=== PATIENT | female | born 1940 | race African-American/Black ===

== ENCOUNTER 2016-08-06 16:02 | Inpatient (IN) | payer OTHER ==
[~2016-08-06] VITALS: Ht 165.1 cm; Wt 138.2 kg
[2016-08-06] MEDS ORDERED: ACETAMINOPHEN 325 MG TAB ONE (17:24)
[2016-08-06] MEDS ORDERED: SODIUM CHLORIDE 0.9% 1,000 ML ONE (18:16)
[2016-08-06] MEDS ORDERED: AZITHROMYCIN 500 MG VIAL IV ONE (18:46)
[2016-08-06] MEDS ORDERED: CEFTRIAXONE 1 GM VIAL ONE (18:46)
[2016-08-06] MEDS ORDERED: SODIUM CHLORIDE 0.9% 100 ML IV ONE (18:47)
[2016-08-06] MEDS ORDERED: SODIUM CHLORIDE 0.9% 250 ML IV ONE (18:47)
[2016-08-06] MEDS ORDERED: DEXTROSE 50% SYRINGE 50 ML IV PRN (20:00)
[2016-08-06] MEDS ORDERED: GLUCAGON 1 MG VIAL IM PRN (20:00)
[2016-08-06 21:02] VITALS: RESP 20; TEMP 99.6
[2016-08-06 21:16] VITALS: BP_SYST 140
[2016-08-06 21:17] VITALS: BMI 50.7
[2016-08-06 22:18] VITALS: RESP 20
[2016-08-06 23:55] VITALS: TEMP 100.3
[2016-08-07] VITALS (8 sets, daily range): BP systolic 111–144; RESP 18–20; TEMP 98–99.6; Ht 165.1 cm; Wt 138.2 kg
[2016-08-07] MEDS: ENOXAPARIN 40 MG/0.4 ML SYR SUBQ SCH ×2 (00:01→08:34)
[2016-08-07] MEDS: SODIUM CHLORIDE 0.9% 1,000 ML IV SCH ×3 (00:01→17:23)
[2016-08-07] MEDS: ACETAMINOPHEN 325 MG TAB PO PRN ×2 (00:17→08:35)
[2016-08-07] MEDS ORDERED: MISSING DOSE XX ONE (08:25)
[2016-08-07] MEDS: CEFTRIAXONE 1 GM in SODIUM CHLORIDE 0.9% 50 ML IV SCH (08:33)
[2016-08-07] MEDS: AZITHROMYCIN 250 MG TAB PO SCH (09:29)
[2016-08-08] VITALS (11 sets, daily range): BP systolic 121–188; RESP 16–24; TEMP 98.1–98.4
[2016-08-08] MEDS: SODIUM CHLORIDE 0.9% 1,000 ML IV SCH (07:11)
[2016-08-08] MEDS: AZITHROMYCIN 250 MG TAB PO SCH (08:18)
[2016-08-08] MEDS: ENOXAPARIN 40 MG/0.4 ML SYR SUBQ SCH (08:19)
[2016-08-08] MEDS: CEFTRIAXONE 1 GM in SODIUM CHLORIDE 0.9% 50 ML IV SCH (08:19)
[2016-08-08] MEDS: ACETAMINOPHEN 325 MG TAB PO PRN (08:19)
[2016-08-08] MEDS: TRIAMCIN 0.1% CR 454 GM TOPICAL SCH (08:23)
[2016-08-08] MEDS: LEVEMIR INSULIN SUBQ SCH ×2 (14:57→20:58)
[2016-08-08] MEDS: LEVOTHYROXINE 0.025 MG TAB PO SCH (14:57)
[2016-08-08] MEDS ORDERED: MISSING DOSE XX ONE (15:50)
[2016-08-08] MEDS: Furosemide 20 MG TAB PO SCH (16:14)
[2016-08-08] MEDS: humuLIN REG INSULIN SUBQ SCH (16:44)
[2016-08-09] VITALS (9 sets, daily range): BP systolic 133–185; RESP 20–24; TEMP 97.4–98.6
[2016-08-09] MEDS: ACETAMINOPHEN 325 MG TAB PO PRN (00:18)
[2016-08-09] MEDS: SODIUM CHLORIDE 0.9% 1,000 ML IV SCH ×2 (05:08→18:47)
[2016-08-09] MEDS ORDERED: MISSING DOSE XX ONE ×2 (06:05→20:10)
[2016-08-09] MEDS: LEVOTHYROXINE 0.025 MG TAB PO SCH (06:31)
[2016-08-09] MEDS: humuLIN REG INSULIN SUBQ SCH ×3 (08:19→16:58)
[2016-08-09] MEDS: LEVEMIR INSULIN SUBQ SCH ×2 (08:29→20:21)
[2016-08-09] MEDS: CEFTRIAXONE 1 GM in SODIUM CHLORIDE 0.9% 50 ML IV SCH (08:30)
[2016-08-09] MEDS: ENOXAPARIN 40 MG/0.4 ML SYR SUBQ SCH (08:34)
[2016-08-09] MEDS: Atorvastatin 40 MG TAB PO SCH ×2 (08:34→20:20)
[2016-08-09] MEDS: Furosemide 20 MG TAB PO SCH (08:34)
[2016-08-09] MEDS: AZITHROMYCIN 250 MG TAB PO SCH (08:34)
[2016-08-09] MEDS: TRIAMCIN 0.1% CR 454 GM TOPICAL SCH (13:40)
[2016-08-10] VITALS (11 sets, daily range): BP systolic 128–183; RESP 16–20; TEMP 97.4–98.2
[2016-08-10] MEDS: LEVOTHYROXINE 0.025 MG TAB PO SCH (06:19)
[2016-08-10] MEDS: SODIUM CHLORIDE 0.9% 1,000 ML IV SCH (06:30)
[2016-08-10] MEDS: LEVEMIR INSULIN SUBQ SCH ×2 (08:25→23:00)
[2016-08-10] MEDS: humuLIN REG INSULIN SUBQ SCH ×3 (08:26→17:05)
[2016-08-10] MEDS: AZITHROMYCIN 250 MG TAB PO SCH (08:47)
[2016-08-10] MEDS: CEFTRIAXONE 1 GM in SODIUM CHLORIDE 0.9% 50 ML IV SCH (08:48)
[2016-08-10] MEDS: ENOXAPARIN 40 MG/0.4 ML SYR SUBQ SCH (08:48)
[2016-08-10] MEDS: Furosemide 20 MG TAB PO SCH (08:48)
[2016-08-10] MEDS: TRIAMCIN 0.1% CR 454 GM TOPICAL SCH (10:15)
[2016-08-10] MEDS: Atorvastatin 40 MG TAB PO SCH (22:00)
[2016-08-10] MEDS ORDERED: LEVEMIR INSULIN SUBQ SCH (22:42)
[2016-08-11] VITALS (9 sets, daily range): BP systolic 116–156; RESP 17–20; TEMP 97.5–98.5
[2016-08-11] MEDS: LEVOTHYROXINE 0.025 MG TAB PO SCH (06:31)
[2016-08-11] MEDS: Furosemide 20 MG TAB PO SCH (08:18)
[2016-08-11] MEDS: CEFTRIAXONE 1 GM in SODIUM CHLORIDE 0.9% 50 ML IV SCH (08:19)
[2016-08-11] MEDS: LEVEMIR INSULIN SUBQ SCH ×2 (08:20→16:52)
[2016-08-11] MEDS: humuLIN REG INSULIN SUBQ SCH ×3 (08:20→16:52)
[2016-08-11] MEDS: ENOXAPARIN 40 MG/0.4 ML SYR SUBQ SCH (08:21)
[2016-08-11] MEDS: TRIAMCIN 0.1% CR 454 GM TOPICAL SCH (08:26)
[2016-08-11] MEDS: Atorvastatin 40 MG TAB PO SCH (21:49)
[2016-08-12 03:18] VITALS: BP_SYST 123; RESP 20; TEMP 98.3
[2016-08-12] MEDS: LEVOTHYROXINE 0.025 MG TAB PO SCH (06:15)
[2016-08-12 07:53] VITALS: BP_SYST 140; RESP 20; TEMP 98.3
[2016-08-12] MEDS ORDERED: LEVEMIR INSULIN SUBQ SCH ×2 (08:00→17:00)
[2016-08-12] MEDS: CEFTRIAXONE 1 GM in SODIUM CHLORIDE 0.9% 50 ML IV SCH (08:32)
[2016-08-12] MEDS: Furosemide 20 MG TAB PO SCH (08:33)
[2016-08-12] MEDS: ENOXAPARIN 40 MG/0.4 ML SYR SUBQ SCH (08:34)
[2016-08-12] MEDS: humuLIN REG INSULIN SUBQ SCH ×3 (08:35→17:10)
[2016-08-12] MEDS: TRIAMCIN 0.1% CR 454 GM TOPICAL SCH (08:36)
[2016-08-12 13:00] VITALS: BP_SYST 138; RESP 20; TEMP 98.4
[2016-08-12 17:14] VITALS: BP_SYST 116; RESP 20; TEMP 98.6
[2016-08-12 19:15] VITALS: BP_SYST 150; RESP 20; TEMP 98.4
[2016-08-12] MEDS: Atorvastatin 40 MG TAB PO SCH (21:46)
[2016-08-12 23:52] VITALS: BP_SYST 137; RESP 20; TEMP 98.3
[2016-08-13] VITALS (8 sets, daily range): BP systolic 118–156; RESP 18–20; TEMP 97.1–98.4
[2016-08-13] MEDS: LEVOTHYROXINE 0.025 MG TAB PO SCH (06:41)
[2016-08-13] MEDS: LEVEMIR INSULIN SUBQ SCH ×2 (08:19→17:15)
[2016-08-13] MEDS: humuLIN REG INSULIN SUBQ SCH ×3 (08:19→17:15)
[2016-08-13] MEDS: Furosemide 20 MG TAB PO SCH (08:21)
[2016-08-13] MEDS: ENOXAPARIN 40 MG/0.4 ML SYR SUBQ SCH (08:21)
[2016-08-13] MEDS ORDERED: MISSING DOSE XX ONE (08:55)
[2016-08-13] MEDS: CEFTRIAXONE 1 GM in SODIUM CHLORIDE 0.9% 50 ML IV SCH (10:43)
[2016-08-13] MEDS: TRIAMCIN 0.1% CR 454 GM TOPICAL SCH (12:06)
[2016-08-13] MEDS: Atorvastatin 40 MG TAB PO SCH (21:59)
[2016-08-14] VITALS (8 sets, daily range): BP systolic 136–155; RESP 16–20; TEMP 97.9–98
[2016-08-14] MEDS ORDERED: SODIUM CHLORIDE 0.9% FLUSH BAG 500 ML IV SCH (06:00)
[2016-08-14] MEDS ORDERED: SALINE FLUSH 10 ML FLUSH PRN (06:00)
[2016-08-14] MEDS: LEVOTHYROXINE 0.025 MG TAB PO SCH (06:29)
[2016-08-14] MEDS ORDERED: SALINE FLUSH 10 ML FLUSH SCH (08:00)
[2016-08-14] MEDS: LEVEMIR INSULIN SUBQ SCH ×2 (08:11→16:45)
[2016-08-14] MEDS ORDERED: APIXABAN 5 MG TAB PO SCH (09:00)
[2016-08-14] MEDS: Furosemide 20 MG TAB PO SCH (09:48)
[2016-08-14] MEDS: TRIAMCIN 0.1% CR 454 GM TOPICAL SCH (14:52)
== END 2016-08-14 21:30 | disposition home health service (06) | DRG 853 ==
LOC: ER 16:02 → ENPENDDIS 18:57 → EMR 18:57 → 3NT 20:58
PROVIDERS: ADMIT Internal Medicine; ATTEND Internal Medicine
PROC: 0HBRXZZ Excision of Toe Nail, External Approach (ICD-10-PCS; principal; 2016-08-09)
PROC: 0JBQ0ZZ Excision of Right Foot Subcutaneous Tissue and Fascia, Open Approach (ICD-10-PCS; 2016-08-09)
PROC: 0HBRXZZ Excision of Toe Nail, External Approach (ICD-10-PCS; 2016-08-09)
PROC: 0HBRXZZ Excision of Toe Nail, External Approach (ICD-10-PCS; 2016-08-09)
PROC: 0HBRXZZ Excision of Toe Nail, External Approach (ICD-10-PCS; 2016-08-09)
PROC: 0HBRXZZ Excision of Toe Nail, External Approach (ICD-10-PCS; 2016-08-09)
PROC: 0HBRXZZ Excision of Toe Nail, External Approach (ICD-10-PCS; 2016-08-09)
PROC: 0HBRXZZ Excision of Toe Nail, External Approach (ICD-10-PCS; 2016-08-09)
PROC: 0HBRXZZ Excision of Toe Nail, External Approach (ICD-10-PCS; 2016-08-09)
PROC: 0HBRXZZ Excision of Toe Nail, External Approach (ICD-10-PCS; 2016-08-09)
PROC: 0HBRXZZ Excision of Toe Nail, External Approach (ICD-10-PCS; 2016-08-09)
DX: A41.89 Other specified sepsis (principal); J18.9 Pneumonia, unspecified organism; E11.22 Type 2 diabetes mellitus with diabetic chronic kidney disease; N18.3 Chronic kidney disease, stage 3 (moderate); E11.621 Type 2 diabetes mellitus with foot ulcer; L97.419 Non-pressure chronic ulcer of right heel and midfoot with unspecified severity; I12.9 Hypertensive chronic kidney disease with stage 1 through stage 4 chronic kidney disease, or unspecified chronic kidney disease; B35.1 Tinea unguium; M79.671 Pain in right foot; Z68.43 Body mass index [BMI] 50.0-59.9, adult; I48.2 Chronic atrial fibrillation; R65.20 Severe sepsis without septic shock; E66.01 Morbid (severe) obesity due to excess calories; R53.81 Other malaise; K43.9 Ventral hernia without obstruction or gangrene; Z91.412 Personal history of adult neglect; Z74.01 Bed confinement status; H35.30 Unspecified macular degeneration; Z86.73 Personal history of transient ischemic attack (TIA), and cerebral infarction without residual deficits; Z79.01 Long term (current) use of anticoagulants; Z79.4 Long term (current) use of insulin; M62.84 Sarcopenia; L60.0 Ingrowing nail; L60.2 Onychogryphosis; M79.672 Pain in left foot
CPT/HCPCS: 36415; 71010; 80048; 80053; 81001; 82947; 83036; 83605; 83880; 85025; 85610; 85730; 86713; 87040; 87077; 87186; 87278; 87299; 87804; 94799; 96361; 96365; 96367; 99222; 99232; 99233; 99239

== ENCOUNTER 2016-08-17 10:22 | Emergency (ER) | payer OTHER ==
[2016-08-17] MEDS ORDERED: ONDANSETRON ODT 4 MG TAB ONE (11:48)
== END 2016-08-17 17:46 | disposition home or self-care (01) ==
LOC: ER 10:22
DX: S83.91XA Sprain of unspecified site of right knee, initial encounter (principal); X50.1XXA Overexertion from prolonged static or awkward postures, initial encounter; Y93.89 Activity, other specified; Y92.098 Other place in other non-institutional residence as the place of occurrence of the external cause; M17.11 Unilateral primary osteoarthritis, right knee; Z79.899 Other long term (current) drug therapy; Z79.4 Long term (current) use of insulin